=== PATIENT | male | born 1985 | race Caucasian/White ===

== ENCOUNTER → 2021-07-04 | Outpatient (CLI) | payer OTHER | LOC: HEART 5 09:29 | DX: R06.02 Shortness of breath (principal); R94.2 Abnormal results of pulmonary function studies | CPT/HCPCS: 94010 ==

== ENCOUNTER → 2021-09-02 | Outpatient (CLI) | payer OTHER | LOC: HEART 5 09:12 | DX: Z91.82 Personal history of military deployment (principal) | CPT/HCPCS: 94060 ==